=== PATIENT | male | born 2000 | race Caucasian/White ===

== ENCOUNTER 2021-02-08 06:17 | Day surgery (SDC) | payer OTHER, SELFPAY ==
[~2021-02-08] VITALS: Ht 180.3 cm; Wt 74.8 kg
[2021-02-08] MEDS ORDERED: ACETAMINOPHEN I.V. 1000 MG 100 ML IV ONE (06:50)
[2021-02-08] MEDS ORDERED: MIDAZOLAM HCL 5 MG/5 ML VIAL IVP ONE (07:44)
[2021-02-08] MEDS ORDERED: SUGAMMADEX SODIUM 200 MG/2 ML VIAL IV ONE (07:44)
[2021-02-08] MEDS ORDERED: LIDOCAINE/EPI MPF 1%1:200000 30 ML VIAL INJ ONE (07:44)
[2021-02-08] MEDS ORDERED: ROCURONIUM BROMIDE 10 MG/ML (ZEMURON) IV ONE (07:44)
[2021-02-08] MEDS ORDERED: DEXAMETHASONE SOD PHOSPHATE 4 MG/ML VIAL IVP ONE (07:44)
[2021-02-08] MEDS ORDERED: ePHEDrine sulfate 50 MG/ML VIAL IVP ONE (07:44)
[2021-02-08] MEDS ORDERED: NS IRRIG SOLN 1000 ML IR ONE (07:44)
[2021-02-08] MEDS ORDERED: DESFLURANE 15 MIN GAS INH ONE (07:44)
[2021-02-08] MEDS ORDERED: OXYMETAZOLINE HCL 0.05% NASAL SPRAY NS ONE (07:44)
[2021-02-08] MEDS ORDERED: fentaNYL CITRATE 250 MCG/5 ML AMP IV ONE (07:44)
[2021-02-08] MEDS ORDERED: LR 1,000 ML IV.SOLN IV ONE (07:44)
[2021-02-08] MEDS ORDERED: PROPOFOL 200MG/ 20ML VIAL (DIPRIVAN) IV ONE (07:44)
[2021-02-08] MEDS ORDERED: ONDANSETRON HCL 4 MG/2 ML VIAL IVP ONE (07:44)
[2021-02-08] MEDS ORDERED: NS 1000 ML IV.SOLN IV ONE (07:44)
[2021-02-08] MEDS ORDERED: LIDOCAINE PF 2%, 200 MG/10 ML AMPUL.LUER (EPIDURAL) INJ ONE (07:44)
[2021-02-08] MEDS ORDERED: WATER FOR IRRIGATION,STERILE 1,000 ML IRRIG.SOLN IR ONE (07:44)
[2021-02-08] MEDS ORDERED: MUPIROCIN 2% TOPICAL OINTMENT 22 GM TP ONE (07:44)
[2021-02-08] MEDS ORDERED: LR 1,000 ML IV SCH (08:30)
[2021-02-08] MEDS ORDERED: MEPERIDINE HCL/PF 25 MG/ML DISP.SYRIN IVP PRN (08:30)
[2021-02-08] MEDS ORDERED: MIDAZOLAM HCL 2 MG/2 ML VIAL (VERSED) IVP PRN (08:30)
[2021-02-08] MEDS ORDERED: HYDROmorphone 1 MG/ML INJ. CARTRIDGE IVP PRN ×2 (08:30)
[2021-02-08] MEDS ORDERED: hydrALAZINE HCL 20 MG/ML VIAL IVP PRN (08:30)
[2021-02-08] MEDS ORDERED: LABETALOL 100 MG/ 20ML VIAL IVP PRN (08:30)
[2021-02-08] MEDS ORDERED: METOCLOPRAMIDE HCL 10 MG/2 ML VIAL IVP PRN (08:30)
[2021-02-08] MEDS ORDERED: METOCLOPRAMIDE HCL 10 MG/2 ML VIAL ONE (11:44)
[2021-02-08] MEDS ORDERED: ONDANSETRON HCL 4 MG/2 ML VIAL ONE (14:09)
[2021-02-08 15:43] VITALS: BP_SYST 121
== END 2021-02-08 15:35 | disposition home or self-care (01) ==
LOC: SDS 06:17 → SMU 06:19 → EDSEX 12:15 → SDS 15:35
PROVIDERS: ATTEND Otolaryngology
DX: J34.89 Other specified disorders of nose and nasal sinuses (principal); D38.5 Neoplasm of uncertain behavior of other respiratory organs; J34.2 Deviated nasal septum; J30.1 Allergic rhinitis due to pollen; Z79.899 Other long term (current) drug therapy
CPT/HCPCS: 30140; 30520; 31256; 31257; 31296; 36415; 87426; 88305; 88311; C1726; J0131; J1100; J2001; J2250; J2405; J2704; J2765; J3010; J3490; J7030; J7120; 88304